=== PATIENT | female | born 1980 | race Caucasian/White ===

== ENCOUNTER 2017-02-26 19:44 | Emergency (ER) | payer MEDICAID ==
[2017-02-26] MEDS ORDERED: Sulfamethoxazole/TMP 800/160mg Tab PO ONE (20:51)
[2017-02-26] MEDS ORDERED: Sulfamethoxazole/TMP 800/160mg Tab ONE (20:52)
--- NOTE | 2017-02-26 20:57 | ED Physician Chart ---
Chief Complaint/HPI - Patient Information Date Seen:: 02/26/17 Time Seen:: 20:40 Chief Complaint:: left lower leg redness History of Present Illness:: Patient was stung by a bee on distal left lower leg 3 days ago after which she developed redness around the site. [place] warm; temperature not taken. Allergies:: Allergies Allergy/AdvReac Type Severity Reaction Status Date / Time No Known Allergies Allergy Verified 02/26/17 19:53 Vitals:: Vital Signs - 8 hr 02/26/17 19:45 Temp 98.4 F HR 94 RR 18 BP 120/74 O2 Sat % 96 Historian:: Patient Review:: Nurse's Note Reviewed Review of Systems - Review of Systems General/Constitutional: Fever Skin: Skin lesions Head: No headache Eyes: No loss of vision ENT: No earache Neck: No neck pain Cardio Vascular: No chest pain Pulmonary: No SOB GI: Nausea, Vomiting G/U: No dysuria Musculoskeletal: No bone or joint pain Endocrine: No polyuria, No polydipsia Psychiatric: No prior psych history Hematopoietic: No bruising Allergic/Immuno: No urticaria Neurological: Syncope Past Medical History - Past Medical History Past Medical History: No significant medical hx Family History: Diabetes Melitus Social History: Non Smoker, No Alcohol Surgical History: Psychiatricy History: None Medication: None Family Medical History - Family Member Mother Hx Family Diabetes: Yes Physical Exam - Physical Examination General/Constitutional: Well-developed, well-nourished, Alert, No distress Head: Atraumatic Eyes: Lids, conjuctiva normal, PERRL Other Skin comments:: 6 by 6 cm dark erythema distal left lower leg with 20 cm of pale erythema. ENMT: External ears, nose nl Neck: No nuchal rigidity Respiratory: Nl effort/Exclusion, Clear to Auscultation, No Wheeze/Rhonchi/Rales Cardio Vascular: RRR, No murmur, gallop, rubs GI: No tenderness/rebounding/guarding, No organomegaly, No hernia : No CVA tenderness Extremities: Normal digits & nails ED Septic Shock - . Is Septic Shock (SBP<90, OR Lactate>4 mmol\L) present?: No - <6hrs of presentation: Vital Signs: Vital Signs - 8 hr 02/26/17 19:45 Temp 98.4 F HR 94 RR 18 BP 120/74 O2 Sat % 96 Reassessment (Disposition) - Reassessment Reassessment Condition:: Unchanged - Diagnosis Diagnosis:: cellulitis left lower leg - Aftercare/Follow up Instructions Aftercare/Follow-Up Instructions:: Refer to Discharge Instructions Medication Prescribed:: Rx for Keflex 500 mg #40 Sig 1 QID and Bactrim DS #20 Sig 1 BID - Patient Disposition Discharge/Transfer:: Home Condition at Disposition:: Stable, Unchanged ED Discharge Plan - Patient Disposition Prescriptions: Cephalexin [Keflex] 500 mg PO QID #40 cap Sulfamethoxazole/TMP [Bactrim Ds] 1 tab PO BID #14 tab Instructions: Cellulitis, [id number] Additional Instructions: FOLLOW UP WITH YOUR DOCTOR IN 2- 3 DAYS AND TO COME BACK TO ER IF SYMPTOMS WORSEN. TAKE YOUR MEDICATIONS PRESCRIBED
== END 2017-02-26 21:40 | disposition home or self-care (01) ==
LOC: ER 19:44
DX: L03.115 Cellulitis of right lower limb (principal)
CPT/HCPCS: 99284; Q0162; Z7502; Z7610